=== PATIENT | female | born 1965 | race Caucasian/White ===

== ENCOUNTER 2020-12-15 20:15 | Emergency (ER) | payer OTHER ==
[~2020-12-15] VITALS: Ht 149.8 cm; Wt 45.0 kg
[~2020-12-15 20:15] MED LIST: CLPD75T; INSASP10V; LISI5TAB14; PNT40TEC
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
[2020-12-15] MEDS ORDERED: LIDOCAINE 1% INJ 20 ML 20 ML VIAL INJ ONE (21:00)
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
[2020-12-15 22:23] VITALS: BP 125/67
== END 2020-12-15 22:23 | disposition home or self-care (01) ==
LOC: EDUNIT# 20:15 → ER 20:17
DX: S81.012A Laceration without foreign body, left knee, initial encounter (principal); S00.81XA Abrasion of other part of head, initial encounter; R40.2410 Glasgow coma scale score 13-15, unspecified time; Z79.01 Long term (current) use of anticoagulants; V89.2XXA Person injured in unspecified motor-vehicle accident, traffic, initial encounter
CPT/HCPCS: 12031; 70450; 72125; 73562

== ENCOUNTER 2020-12-25 11:11 | Emergency (ER) | payer OTHER ==
[~2020-12-25] VITALS: Ht 160 cm; Wt 49.6 kg
[2020-12-25] MEDS ORDERED: CEPH500T PO (11:33)
[2020-12-25] MEDS ORDERED: ACHD5005 PO (11:33)
[2020-12-25 11:36] VITALS: BP 126/68
== END 2020-12-25 11:41 | disposition home or self-care (01) ==
LOC: EDUNIT# 11:11 → ER 11:12
DX: Z48.02 Encounter for removal of sutures (principal)